=== PATIENT | male | born 1970 | race Caucasian/White ===

== ENCOUNTER 2017-06-06 08:29 | Emergency (ER) | payer OTHER ==
[~2017-06-06] VITALS: Ht 188 cm; Wt 98.0 kg
[2017-06-06 09:33] LABS: EOSINOPHIL (%) 0.7 % (0-5); EOSINOPHIL COUNT 0.1 K/uL (0-0.3); HEMATOCRIT 41.2 % (38.0-50.0); IMMATURE GRANULOCYTE (%) 0.3 % (0.0-0.7); INSTRUMENT ABS NEUTROPHIL CT 7.3 K/uL; LYMPHOCYTE COUNT 2.6 K/uL (1.0-2.8); MCHC 35.2 G/DL (30.0-36.0); MCV 96.5 FL (86-99); MEAN PLAT.VOLUME 9.9 uM^3 (9.0-12.4); MONOCYTE (%) 6.5 % (3-12); MONOCYTE COUNT 0.7 K/uL (0-0.8); NEUTROPHIL (%) 67.8 % (45-76); NEUTROPHIL COUNT 7.3 K/uL (1.8-6.4); PLATELET COUNT 227 K/uL (156-360); RBC DIS.WIDTH-CV 12.1 % (11.8-14.6); RBC DIS.WIDTH-SD 42.8 % (39-53); RED BLOOD COUNT 4.27 M/uL (4.00-5.50); WHITE BLOOD COUNT 10.7 K/uL (4.1-10.2)
[2017-06-06 09:38] LABS: INTER. NORMALIZED RATIO 1.2; PROTHROMBIN TIME 12.8 SEC (10.2-12.9)
[2017-06-06 09:41] LABS: PTT 32.7 SEC (25-37)
[2017-06-06 10:01] LABS: ALKALINE PHOSPHATASE 66 IU/L (3-129); ANION GAP 13 MEQ/L (2-14); CHLORIDE 100 MEQ/L (99-109); CREATINE KINASE 158 IU/L (1-294); GFR ESTIMATE (CALCULATED) > 59 mL/min/; GLUCOSE 91 mg/dL (70-99); POTASSIUM 2.9 MEQ/L (3.7-5.4); SAMPLE HEMOLYSIS CHECK 0; SAMPLE ICTERIC CHECK 0; SAMPLE LIPEMIA CHECK 0; SODIUM 142 MEQ/L (136-147); TOTAL BILIRUBIN 0.6 MG/DL (0.0-1.0); TOTAL CK 158 IU/L (1-294); UREA NITROGEN (BUN) 7 mg/dL (9-23)
[2017-06-06 10:04] LABS: TROP-I INTERPRETATION NEGATIVE; TROPONIN-I 0.01 ng/mL (0.0-0.30)
[2017-06-06 10:19] LABS: CK-MB 1.1 ng/mL (0.0-4.9)
[2017-06-06 13:03] LABS: CHLORIDE 100 mEq/L (99-109); POTASSIUM 2.8 mEq/L (3.7-5.4); SODIUM 143 mEq/L (136-147)
[2017-06-06 13:05] LABS: GLUCOSE 90 mg/dL (70-99)
[2017-06-06 13:07] LABS: ANION GAP 14 MEQ/L (2-14)
[2017-06-06 13:09] LABS: GFR ESTIMATE (CALCULATED) > 59 mL/min/
[2017-06-06 13:10] LABS: UREA NITROGEN (BUN) 6 mg/dL (9-23)
[2017-06-06 13:13] LABS: TROP-I INTERPRETATION NEGATIVE; TROPONIN-I < 0.01 ng/mL (0.0-0.30)
[2017-06-06] MEDS ORDERED: K-DUR20 MEQ PO (13:35)
[2017-06-06 13:56] VITALS: BP 184/106
== END 2017-06-06 14:08 | disposition home or self-care (01) ==
LOC: EME 08:29
PROVIDERS: Emergency Medicine
DX: R20.2 Paresthesia of skin (principal); E87.6 Hypokalemia; F17.200 Nicotine dependence, unspecified, uncomplicated
CPT/HCPCS: 70450; 70551; 71010; 80048 91; 80053; 82550; 82553; 84484; 85025; 85610; 85730; 93005; 99281; 99284